=== PATIENT | male | born 1965 ===

== ENCOUNTER → 2018-01-24 | Outpatient (CLI) | payer OTHER ==
--- NOTE | 2018-01-24 19:48 | Diagnostic Imaging Report ---
INDICATION: Fall. Three views of the right shoulder were obtained. FINDINGS: The alignment is normal. There is no fracture or dislocation. The right lung is clear. There is some lobulated soft tissue in the supraclavicular region. This is nonspecific; however, underlying adenopathy cannot be excluded. IMPRESSION: No acute fracture or dislocation. Lobulated soft tissue in the supraclavicular region. This is nonspecific; however, underlying mass or adenopathy cannot be excluded. Recommend clinical correlation and if warranted followup with either ultrasound or further cross-sectional imaging such as CT. Dictated by: Dictated on workstation # [id number]
== END ==
LOC: RAD 16:54
PROVIDERS: ATTEND Nurse Practitioner Family
DX: S43.401A Unspecified sprain of right shoulder joint, initial encounter (principal); W19.XXXA Unspecified fall, initial encounter
CPT/HCPCS: 73030

== ENCOUNTER → 2018-02-14 | Outpatient (CLI) | payer OTHER ==
[~2018-02-14] MED LIST: GADOBUTROL 7.5 MMOL/7.5 ML (GADAVIST) VIAL IV ONE; IOHEXOL 300 MG/ML 50 ML (OMNIPAQUE 300) VIAL IV ONE; LIDOCAINE 1% INJ 20 ML 20 ML VIAL ONE; LIDOCAINE 1% INJ 50 ML (XYLOCAINE) VIAL IJ ONE
[2018-02-14] MEDS: CATHETER FLUSH 10 ML SYR IV PRN ×2 (14:36→14:37)
--- NOTE | 2018-02-14 14:47 | Diagnostic Imaging Report ---
INDICATION: Right shoulder injury at work. TECHNIQUE: The patient was brought to the fluoroscopy suite and placed on the table in the supine position. The skin of the right shoulder was prepped and draped in the usual sterile fashion. A small amount of 1% lidocaine was utilized for local anesthesia. A 22-gauge needle was advanced into the right shoulder at the rotator interval. A 15 mL solution of iodinated contrast, normal saline, and gadolinium was injected under fluoroscopic observation. The needle was withdrawn and hemostasis was obtained. 41 seconds of fluoroscopy time was utilized. IMPRESSION: Successful right shoulder injection of gadolinium contrast solution using fluoroscopy. Dictated by: Dictated on workstation # [id number]
--- NOTE | 2018-02-14 16:46 | Diagnostic Imaging Report ---
EXAMINATION: Magnetic resonance imaging of the right shoulder with intra-articular contrast. DATE: February 14, 2018. COMPARISON: Right shoulder arthrogram February 14, 2018. Right shoulder radiographs January 24, 2018. INDICATION: 52-year-old male, injury of the right shoulder approximately 3 weeks ago. Difficulty raising arm above head with shoulder pain. TECHNIQUE: Magnetic Resonance Imaging sequences were performed of the shoulder following the intra-articular administration of contrast. FINDINGS: ROTATOR CUFF, LIGAMENTS, TENDONS, AND MUSCLES: There is a full-thickness full-width tear of the subscapularis tendon with tendon retraction measuring 13 mm as measured on axial T1 fat saturation sequence image 18. The supraspinatus and infraspinatus tendons as well as the teres minor tendon are intact. There is normal rotator cuff muscle bulk and signal. LONG HEAD OF BICEPS: The long head of biceps tendon is medially dislocated outside of the bicipital groove and is positioned between the articulating surfaces of the anterior glenoid and humeral head on axial T1 fat saturation sequence image 15. Long head of biceps tendon is intact. GLENOHUMERAL JOINT: The humeral head is well positioned relative to the glenoid. The labrum is intact. There is no identified paralabral cyst. The articular cartilage is grossly intact. There is no intra-articular body or prominent synovitis. The anterior and posterior bands of the inferior glenohumeral ligament complex appear intact. ACROMIOCLAVICULAR JOINT: The acromioclavicular joint is normally aligned. The coracoclavicular and coracoacromial ligaments are intact. There are no acromioclavicular degenerative changes. BONE: The bones all have normal configuration. The bone marrow signal is within normal limits. Specifically, negative for fracture, osteomyelitis, osteonecrosis, or marrow replacing process. BURSAE AND SOFT TISSUES: There is extension of contrast within the subacromial subdeltoid bursa compatible with the full-thickness rotator cuff tendon tear. IMPRESSION: 1. Full-thickness full-width tear of the subscapularis tendon with tendon retraction of 1.3 cm. No fatty muscle atrophy. 2. The long head of biceps tendon is medially dislocated outside of the bicipital groove and is positioned between the anterior margin of the articulating surface of the humeral head and glenoid. The long head of biceps tendon is currently intact. 3. Intact acromioclavicular joint. 4. No acute fracture, bone contusion, or evidence of osteonecrosis. Dictated by: Dictated on workstation # [id number]
== END ==
LOC: RAD 13:28
PROVIDERS: ATTEND Nurse Practitioner Family
DX: S46.811A Strain of other muscles, fascia and tendons at shoulder and upper arm level, right arm, initial encounter (principal); M67.813 Other specified disorders of tendon, right shoulder; R53.1 Weakness
CPT/HCPCS: 23350; 73040; 73222